=== PATIENT | female | born 1975 | race Caucasian/White ===

== ENCOUNTER → 2017-07-07 | Outpatient (CLI) | payer OTHER ==
[~2017-07-07] MED LIST: BYDUREON P2 MG/0.65 SQ; FLEXERIL 1010 MG/TAB PO; FORT1000TA PO; HEPARIN LOCK FLU5 M1 IV; HUMULIN N 10100 U/ML SC; IRON325 MG PO; K-DUR 10 MEQ T10 MEQ PO; LASIX 20MG TABL20 MG PO; MERREM IV1 GM IV; MOTRIN 600600 MG/TAB PO; NAPROSYN500 MG PO; NORCO 325 MG-51 TAB PO; NORCO 325 MG-7.1 TAB PO; NOVOLOG 100U100 U/M1 SQ; NS INT FLUSH 1010 ML IV; PRENATAL1 TA7 PO; PROMETHAZINE12.5 M5 PO; ULTRAM 50MG TAB50 MG PO
== END ==
LOC: COL.RAD 07:22
DX: M75.22 Bicipital tendinitis, left shoulder (principal); M75.82 Other shoulder lesions, left shoulder; G89.29 Other chronic pain; M75.21 Bicipital tendinitis, right shoulder; M89.311 Hypertrophy of bone, right shoulder